=== PATIENT | male | born 1950 | race Caucasian/White ===

== ENCOUNTER 2019-05-27 12:06 | Inpatient (IN) | payer OTHER ==
[~2019-05-27] VITALS: Ht 177.8 cm; Wt 108.1 kg
[~2019-05-27 12:06] MED LIST: CHOL100018 PO; CYAN100099 PO; DULA1.5P SQ; EZET10TA13 PO; FURO80 PO; INSU100I3 SQ; INSU200I4 SQ; KDUR10 PO; LOSA-88 PO; MAGOX PO; SIMV-261 PO; WARF2 PO
[2019-05-27] MEDS ORDERED: INSNOV SQ (12:31)
[2019-05-27] MEDS ORDERED: BUME1TAB34 PO (12:31)
[2019-05-27] MEDS ORDERED: INSU100V37 SQ (12:31)
[2019-05-27] MEDS ORDERED: KDUR10 PO (12:31)
[2019-05-27 12:36] LABS: GLUCOSE,POINT OF CARE 97 MG/DL (70-110)
[2019-05-27] MEDS ORDERED: LIDOCAINE/PF 2% 5 ML VIAL INJ ONE (15:30)
[2019-05-27] MEDS ORDERED: POVIDONE-IODINE 10% 15 ML SOLUTION UD ONE (15:41)
[2019-05-27 15:53] LABS: BASOPHILS % (AUTO) 0.9 % (0.0-2.0); EOSINOPHILS % (AUTO) 0.8 % (1.0-6.0); HEMOGLOBIN 11.5 g/dL (13.5-17.5); LYMPHOCYTES # (AUTO) 1.4 K/uL (1.0-4.8); LYMPHOCYTES % (AUTO) 16.4 % (22.0-44.0); MEAN CORPUSCULAR HEMOGLOBIN 22.6 pg (26.0-34.0); MEAN CORPUSCULAR HGB CONC 30.3 G/dL (31.0-37.0); MEAN CORPUSCULAR VOLUME 74 fL (80-100); MONOCYTES # (AUTO) 1.1 K/uL (0.1-1.0); MONOCYTES % (AUTO) 12.9 % (2.0-9.0); NEUTROPHILS # (AUTO) 5.8 K/uL (1.8-7.7); PLATELET COUNT (AUTO) 112 K/uL (150-450); RED BLOOD CELL COUNT(AUTO) 5.11 MIL/uL (4.50-5.90); RED CELL DISTRIBUTION WIDTH 34.7 % (11.5-14.5)
[2019-05-27 16:10] LABS: CREATININE 1.29 mg/dL (0.60-1.30); INR 1.4 (0.9-1.1); POTASSIUM 3.3 mmol/L (3.5-5.1)
[2019-05-27 16:34] LABS: ALBUMIN 3.5 g/dL (3.4-5.0); TOTAL PROTEIN, SERUM 7.6 g/dL (6.4-8.2)
[2019-05-27] MEDS ORDERED: POTASSIUM CHLORIDE 20 MEQ ER TABLET PO PRN (18:15)
[2019-05-27] MEDS ORDERED: POTASSIUM CHL 10 MEQ/WATER 50 ML IV PRN ×2 (18:15→18:30)
[2019-05-27] MEDS ORDERED: VANCOMYCIN HCL 1 GM/D5% WATER 200 ML IV ONE (19:00)
[2019-05-27] MEDS ORDERED: 0.9% SODIUM CHLORIDE 10 ML SYRINGE IVP PRN (21:15)
[2019-05-27] MEDS ORDERED: ONDANSETRON HCL 4 MG/2 ML VIAL IVP PRN (21:15)
[2019-05-27] MEDS: BUMETANIDE 0.25 MG/ML 4 ML VIAL IVP SCH (21:28)
[2019-05-27] MEDS: ATORVASTATIN CALCIUM 20 MG TABLET PO SCH (21:29)
[2019-05-27] MEDS: DEXTROSE 50%-WATER 25 GM/50 ML SYRINGE IVP PRN (22:40)
[2019-05-27 22:52] VITALS: BP 131/91
[2019-05-27] MEDS: POTASSIUM CHLORIDE 20 MEQ ER TABLET PO PRN (23:28)
[2019-05-28 00:26] VITALS: BP 117/76
[2019-05-28] MEDS: ACETAMINOPHEN 325 MG TABLET PO PRN ×3 (04:11→18:13)
[2019-05-28 04:21] LABS: GLUCOMETER DEV NAME(LOC) 5N.1; GLUCOSE,POINT OF CARE 51 MG/DL (70-110)
[2019-05-28] MEDS: POTASSIUM CHLORIDE 20 MEQ ER TABLET PO PRN (04:25)
[2019-05-28 05:08] VITALS: BP 110/54
[2019-05-28] MEDS: DEXTROSE 50%-WATER 25 GM/50 ML SYRINGE IVP PRN (05:45)
[2019-05-28 05:46] LABS: CALCIUM, TOTAL 8.8 mg/dL (8.8-10.5); CREATININE 1.22 mg/dL (0.60-1.30); POTASSIUM 3.3 mmol/L (3.5-5.1)
[2019-05-28 08:00] VITALS: BP 122/85
[2019-05-28 08:42] LABS: GLUCOMETER DEV NAME(LOC) 5S.1; GLUCOSE,POINT OF CARE 54 MG/DL (70-110)
[2019-05-28] MEDS: ASPIRIN 81 MG CHEWABLE TABLET PO SCH (09:08)
[2019-05-28] MEDS: VANCOMYCIN HCL 1 GM/D5% WATER 200 ML IV SCH ×2 (09:08→20:21)
[2019-05-28] MEDS: BUMETANIDE 0.25 MG/ML 4 ML VIAL IVP SCH ×2 (10:59→20:20)
[2019-05-28 11:16] VITALS: BP 110/85
[2019-05-28 12:00] LABS: BASOPHILS % (AUTO) 1.1 % (0.0-2.0); EOSINOPHILS % (AUTO) 0.9 % (1.0-6.0); HEMATOCRIT 38.8 % (41-53); HEMOGLOBIN 11.6 g/dL (13.5-17.5); LYMPHOCYTES # (AUTO) 1.1 K/uL (1.0-4.8); LYMPHOCYTES % (AUTO) 15.4 % (22.0-44.0); MEAN CORPUSCULAR HEMOGLOBIN 22.5 pg (26.0-34.0); MEAN CORPUSCULAR VOLUME 75 fL (80-100); MONOCYTES # (AUTO) 0.8 K/uL (0.1-1.0); MONOCYTES % (AUTO) 11.4 % (2.0-9.0); NEUTROPHILS # (AUTO) 5.3 K/uL (1.8-7.7); NEUTROPHILS % (AUTO) 71.2 % (40.0-70.0); PLATELET COUNT (AUTO) 135 K/uL (150-450); RED BLOOD CELL COUNT(AUTO) 5.17 MIL/uL (4.50-5.90); RED CELL DISTRIBUTION WIDTH 34.7 % (11.5-14.5)
[2019-05-28] MEDS: PANTOPRAZOLE SODIUM 40 MG DR TABLET PO SCH (12:10)
[2019-05-28] MEDS: INSULIN LISPRO 100 UNITS/ML SQ PRN ×3 (12:12→20:23)
[2019-05-28] MEDS: CefTRIAXone 1 GM/DEXTROSE 50 ML IV SCH (12:26)
[2019-05-28 12:37] LABS: % IRON SATURATION 15.6 % (30-44)
[2019-05-28] MEDS ORDERED: LOPERAMIDE HCL 2 MG CAPSULE PO PRN (14:15)
[2019-05-28] MEDS ORDERED: LOPERAMIDE HCL 2 MG CAPSULE PO ONE (14:15)
[2019-05-28 18:40] LABS: C.DIFF GDH ANTIGEN, Stool Negative (Negative)
[2019-05-28 18:41] LABS: C.DIFF TOXINS A&B, Stool Negative (Negative)
[2019-05-28] MEDS: ATORVASTATIN CALCIUM 20 MG TABLET PO SCH (20:20)
[2019-05-28 20:35] VITALS: BP 106/47
[2019-05-28 23:02] LABS: GLUCOMETER DEV NAME(LOC) 5S.1; GLUCOSE,POINT OF CARE 168 MG/DL (70-110)
[2019-05-28 23:05] LABS: GLUCOMETER DEV NAME(LOC) 5N.2; GLUCOSE,POINT OF CARE 169 MG/DL (70-110)
[2019-05-29] VITALS (7 sets, daily range): BP systolic 20–128; BP diastolic 58–117
[2019-05-29 05:25] LABS: GLUCOMETER DEV NAME(LOC) 5N.1; GLUCOSE,POINT OF CARE 123 MG/DL (70-110)
[2019-05-29 05:26] LABS: GLUCOMETER DEV NAME(LOC) 5N.1; GLUCOSE,POINT OF CARE 215 MG/DL (70-110)
[2019-05-29] MEDS: VANCOMYCIN HCL 1 GM/D5% WATER 200 ML IV SCH ×2 (08:30→20:05)
[2019-05-29] MEDS: BUMETANIDE 0.25 MG/ML 4 ML VIAL IVP SCH (08:30)
[2019-05-29] MEDS: ASPIRIN 81 MG CHEWABLE TABLET PO SCH (08:30)
[2019-05-29] MEDS: PANTOPRAZOLE SODIUM 40 MG DR TABLET PO SCH (08:31)
[2019-05-29 08:53] LABS: EOSINOPHILS % (AUTO) 1.2 % (1.0-6.0); HEMATOCRIT 38.7 % (41-53); HEMOGLOBIN 11.8 g/dL (13.5-17.5); LYMPHOCYTES # (AUTO) 1.4 K/uL (1.0-4.8); LYMPHOCYTES % (AUTO) 22.3 % (22.0-44.0); MEAN CORPUSCULAR HGB CONC 30.4 G/dL (31.0-37.0); MEAN CORPUSCULAR VOLUME 76 fL (80-100); MONOCYTES # (AUTO) 0.8 K/uL (0.1-1.0); MONOCYTES % (AUTO) 13.4 % (2.0-9.0); NEUTROPHILS # (AUTO) 3.8 K/uL (1.8-7.7); NEUTROPHILS % (AUTO) 61.1 % (40.0-70.0); PLATELET COUNT (AUTO) 140 K/uL (150-450); RED BLOOD CELL COUNT(AUTO) 5.11 MIL/uL (4.50-5.90)
[2019-05-29] MEDS ORDERED: METHADONE HCL 10 MG TABLET PO SCH (09:00)
[2019-05-29 09:06] LABS: CALCIUM, TOTAL 9.1 mg/dL (8.8-10.5); CREATININE 1.46 mg/dL (0.60-1.30); POTASSIUM 4.4 mmol/L (3.5-5.1)
[2019-05-29] MEDS: CefTRIAXone 1 GM/DEXTROSE 50 ML IV SCH (11:12)
[2019-05-29] MEDS ORDERED: IPRATROPIUM BROMIDE 0.5 MG/2.5 ML NEB SOLUTION NEB ONE (11:50)
[2019-05-29] MEDS ORDERED: ALBUTEROL SULFATE 2.5 MG/0.5 ML NEB SOLUTION NEB ONE (11:50)
[2019-05-29] MEDS: INSULIN LISPRO 100 UNITS/ML SQ PRN ×2 (12:13→17:08)
[2019-05-29] MEDS ORDERED: ALBUTEROL SULFATE 2.5 MG/0.5 ML NEB SOLUTION NEB SCH (15:00)
[2019-05-29 17:45] LABS: GLUCOMETER DEV NAME(LOC) 5N.1; GLUCOSE,POINT OF CARE 146 MG/DL (70-110)
[2019-05-29 17:46] LABS: GLUCOMETER DEV NAME(LOC) 5N.1; GLUCOSE,POINT OF CARE 169 MG/DL (70-110)
[2019-05-29 18:25] LABS: GLUCOMETER DEV NAME(LOC) 5N.2; GLUCOSE,POINT OF CARE 84 MG/DL (70-110)
[2019-05-29] MEDS ORDERED: IPRATROPIUM BROMIDE 0.5 MG/2.5 ML NEB SOLUTION NEB PRN (20:00)
[2019-05-29] MEDS ORDERED: IPRATROPIUM BROMIDE 0.5 MG/2.5 ML NEB SOLUTION NEB SCH (20:00)
[2019-05-29] MEDS: CARVEDILOL 3.125 MG TABLET PO SCH (20:05)
[2019-05-29] MEDS: ATORVASTATIN CALCIUM 20 MG TABLET PO SCH (20:06)
[2019-05-29] MEDS ORDERED: TraZODone HCL 50 MG TABLET PO PRN (21:00)
[2019-05-29 23:52] LABS: GLUCOMETER DEV NAME(LOC) 5N.1; GLUCOSE,POINT OF CARE 165 MG/DL (70-110)
[2019-05-30 04:55] VITALS: BP 124/60
[2019-05-30 06:57] LABS: BASOPHILS % (AUTO) 1.3 % (0.0-2.0); EOSINOPHILS % (AUTO) 2.6 % (1.0-6.0); HEMATOCRIT 38.2 % (41-53); HEMOGLOBIN 11.5 g/dL (13.5-17.5); LYMPHOCYTES # (AUTO) 1.1 K/uL (1.0-4.8); LYMPHOCYTES % (AUTO) 16.7 % (22.0-44.0); MEAN CORPUSCULAR HGB CONC 30.2 G/dL (31.0-37.0); MEAN CORPUSCULAR VOLUME 76 fL (80-100); MONOCYTES # (AUTO) 0.7 K/uL (0.1-1.0); MONOCYTES % (AUTO) 11.2 % (2.0-9.0); NEUTROPHILS # (AUTO) 4.4 K/uL (1.8-7.7); NEUTROPHILS % (AUTO) 68.2 % (40.0-70.0); PLATELET COUNT (AUTO) 135 K/uL (150-450); RED BLOOD CELL COUNT(AUTO) 5.01 MIL/uL (4.50-5.90); RED CELL DISTRIBUTION WIDTH 35.5 % (11.5-14.5)
[2019-05-30 07:05] LABS: CREATININE 1.27 mg/dL (0.60-1.30); POTASSIUM 4.2 mmol/L (3.5-5.1); VANCOMYCIN,RANDOM 18.1 mcg/mL (25.0-50.0)
[2019-05-30 07:16] VITALS: BP 111/77
[2019-05-30] MEDS ORDERED: VANCOMYCIN HCL 1 GM/D5% WATER 200 ML IV SCH (08:00)
[2019-05-30] MEDS: PANTOPRAZOLE SODIUM 40 MG DR TABLET PO SCH (08:38)
[2019-05-30] MEDS: VANCOMYCIN HCL 1 GM/D5% WATER 200 ML IV SCH ×2 (08:38→21:22)
[2019-05-30] MEDS: LISINOPRIL 5 MG TABLET PO SCH (08:38)
[2019-05-30] MEDS: ASPIRIN 81 MG CHEWABLE TABLET PO SCH (08:39)
[2019-05-30] MEDS ORDERED: BUMETANIDE 1 MG TABLET PO SCH (09:00)
[2019-05-30] MEDS: CARVEDILOL 3.125 MG TABLET PO SCH ×2 (09:00→21:23)
[2019-05-30 09:52] LABS: GLUCOMETER DEV NAME(LOC) 5N.1; GLUCOSE,POINT OF CARE 100 MG/DL (70-110)
[2019-05-30 12:18] VITALS: BP 115/74
[2019-05-30] MEDS: CefTRIAXone 1 GM/DEXTROSE 50 ML IV SCH (14:14)
[2019-05-30 15:28] LABS: GLUCOMETER DEV NAME(LOC) 5N.2; GLUCOSE,POINT OF CARE 96 MG/DL (70-110)
[2019-05-30 16:18] VITALS: BP 102/70
[2019-05-30 20:10] VITALS: BP 119/59
[2019-05-30] MEDS: ATORVASTATIN CALCIUM 20 MG TABLET PO SCH (21:23)
[2019-05-30] MEDS: BUMETANIDE 1 MG TABLET PO SCH (21:23)
[2019-05-31] VITALS (7 sets, daily range): BP systolic 100–139; BP diastolic 61–86
[2019-05-31] MEDS ORDERED: 0.9% SODIUM CHLORIDE 5 ML NEB SOLUTION NEB ONE (05:02)
[2019-05-31] MEDS: IPRATROPIUM BROMIDE 0.5 MG/2.5 ML NEB SOLUTION NEB PRN ×2 (05:09→11:44)
[2019-05-31] MEDS: ALBUTEROL SULFATE 2.5 MG/0.5 ML NEB SOLUTION NEB PRN ×2 (05:09→11:44)
[2019-05-31 07:17] LABS: BASOPHILS % (AUTO) 1.1 % (0.0-2.0); EOSINOPHILS % (AUTO) 2.5 % (1.0-6.0); HEMATOCRIT 35.8 % (41-53); HEMOGLOBIN 10.9 g/dL (13.5-17.5); LYMPHOCYTES # (AUTO) 0.9 K/uL (1.0-4.8); LYMPHOCYTES % (AUTO) 13.7 % (22.0-44.0); MEAN CORPUSCULAR HEMOGLOBIN 23.2 pg (26.0-34.0); MEAN CORPUSCULAR HGB CONC 30.5 G/dL (31.0-37.0); MEAN CORPUSCULAR VOLUME 76 fL (80-100); MONOCYTES # (AUTO) 0.9 K/uL (0.1-1.0); MONOCYTES % (AUTO) 13.5 % (2.0-9.0); NEUTROPHILS # (AUTO) 4.6 K/uL (1.8-7.7); NEUTROPHILS % (AUTO) 69.2 % (40.0-70.0); PLATELET COUNT (AUTO) 162 K/uL (150-450); RED CELL DISTRIBUTION WIDTH 35.6 % (11.5-14.5)
[2019-05-31 07:27] LABS: ALBUMIN 3.2 g/dL (3.4-5.0); BILIRUBIN,TOTAL 1.3 mg/dL (0.1-1.0); CALCIUM, TOTAL 8.6 mg/dL (8.8-10.5); CREATININE 1.29 mg/dL (0.60-1.30); POTASSIUM 4.3 mmol/L (3.5-5.1); TOTAL PROTEIN, SERUM 7.2 g/dL (6.4-8.2)
[2019-05-31] MEDS: PANTOPRAZOLE SODIUM 40 MG DR TABLET PO SCH (09:07)
[2019-05-31] MEDS: BUMETANIDE 1 MG TABLET PO SCH (09:07)
[2019-05-31] MEDS: VANCOMYCIN HCL 1 GM/D5% WATER 200 ML IV SCH ×2 (09:07→20:13)
[2019-05-31] MEDS: LISINOPRIL 5 MG TABLET PO SCH (09:07)
[2019-05-31] MEDS: ASPIRIN 81 MG CHEWABLE TABLET PO SCH (09:07)
[2019-05-31] MEDS: CARVEDILOL 3.125 MG TABLET PO SCH ×2 (09:08→20:23)
[2019-05-31] MEDS: INSULIN LISPRO 100 UNITS/ML SQ PRN ×4 (12:20→21:19)
[2019-05-31] MEDS: CefTRIAXone 1 GM/DEXTROSE 50 ML IV SCH (12:46)
[2019-05-31] MEDS: POTASSIUM CHLORIDE 20 MEQ ER TABLET PO PRN (13:43)
[2019-05-31] MEDS: SPIRONOLACTONE 25 MG TABLET PO SCH (15:15)
[2019-05-31 19:58] LABS: GLUCOMETER DEV NAME(LOC) 5N.2; GLUCOSE,POINT OF CARE 133 MG/DL (70-110)
[2019-05-31 19:58] LABS: GLUCOMETER DEV NAME(LOC) 5N.2; GLUCOSE,POINT OF CARE 128 MG/DL (70-110)
[2019-05-31 19:59] LABS: GLUCOMETER DEV NAME(LOC) 5N.1; GLUCOSE,POINT OF CARE 146 MG/DL (70-110)
[2019-05-31 19:59] LABS: GLUCOMETER DEV NAME(LOC) 5N.1; GLUCOSE,POINT OF CARE 159 MG/DL (70-110)
[2019-05-31 19:59] LABS: GLUCOMETER DEV NAME(LOC) 5N.2; GLUCOSE,POINT OF CARE 148 MG/DL (70-110)
[2019-05-31] MEDS: BUMETANIDE 0.25 MG/ML 4 ML VIAL IVP SCH (20:23)
[2019-05-31] MEDS: ATORVASTATIN CALCIUM 20 MG TABLET PO SCH (20:23)
[2019-05-31 21:25] LABS: GLUCOMETER DEV NAME(LOC) 5N.2; GLUCOSE,POINT OF CARE 191 MG/DL (70-110)
[2019-05-31] MEDS ORDERED: SODIUM CHLORIDE 0.9% 250 ML IV ONE (23:59)
[2019-06-01 03:39] VITALS: BP 132/56
[2019-06-01] MEDS: INSULIN LISPRO 100 UNITS/ML SQ PRN ×5 (05:39→21:20)
[2019-06-01 06:18] LABS: GLUCOMETER DEV NAME(LOC) 5N.2; GLUCOSE,POINT OF CARE 132 MG/DL (70-110)
[2019-06-01 07:11] LABS: CALCIUM, TOTAL 8.7 mg/dL (8.8-10.5); CREATININE 1.37 mg/dL (0.60-1.30); POTASSIUM 4.5 mmol/L (3.5-5.1)
[2019-06-01 07:26] VITALS: BP 123/77
[2019-06-01] MEDS: BUMETANIDE 0.25 MG/ML 4 ML VIAL IVP SCH ×2 (08:47→21:03)
[2019-06-01] MEDS: SPIRONOLACTONE 25 MG TABLET PO SCH (08:47)
[2019-06-01] MEDS: ASPIRIN 81 MG CHEWABLE TABLET PO SCH (08:48)
[2019-06-01] MEDS: LISINOPRIL 5 MG TABLET PO SCH (08:48)
[2019-06-01] MEDS: CARVEDILOL 3.125 MG TABLET PO SCH ×2 (08:48→21:03)
[2019-06-01] MEDS: VANCOMYCIN HCL 1 GM/D5% WATER 200 ML IV SCH ×2 (08:48→21:01)
[2019-06-01] MEDS: PANTOPRAZOLE SODIUM 40 MG DR TABLET PO SCH (08:48)
[2019-06-01 11:36] VITALS: BP 118/69
[2019-06-01] MEDS: CefTRIAXone 1 GM/DEXTROSE 50 ML IV SCH (12:16)
[2019-06-01 14:08] LABS: GLUCOMETER DEV NAME(LOC) 5N.2; GLUCOSE,POINT OF CARE 165 MG/DL (70-110)
[2019-06-01 16:24] VITALS: BP 113/83
[2019-06-01 18:25] LABS: GLUCOMETER DEV NAME(LOC) 5N.1; GLUCOSE,POINT OF CARE 203 MG/DL (70-110)
[2019-06-01 20:13] VITALS: BP 124/81
[2019-06-01] MEDS: ATORVASTATIN CALCIUM 20 MG TABLET PO SCH (21:03)
[2019-06-01 23:57] VITALS: BP 117/65
[2019-06-02] VITALS (7 sets, daily range): BP systolic 100–140; BP diastolic 52–104
[2019-06-02] MEDS: ALBUTEROL SULFATE 2.5 MG/0.5 ML NEB SOLUTION NEB PRN ×4 (00:15→20:17)
[2019-06-02] MEDS: IPRATROPIUM BROMIDE 0.5 MG/2.5 ML NEB SOLUTION NEB PRN ×4 (00:15→20:17)
[2019-06-02 02:27] LABS: GLUCOMETER DEV NAME(LOC) 5N.2; GLUCOSE,POINT OF CARE 147 MG/DL (70-110)
[2019-06-02 06:39] LABS: BASOPHILS % (AUTO) 0.6 % (0.0-2.0); EOSINOPHILS % (AUTO) 0.4 % (1.0-6.0); HEMATOCRIT 36.2 % (41-53); HEMOGLOBIN 11.2 g/dL (13.5-17.5); LYMPHOCYTES # (AUTO) 0.7 K/uL (1.0-4.8); LYMPHOCYTES % (AUTO) 11.9 % (22.0-44.0); MEAN CORPUSCULAR HEMOGLOBIN 23.7 pg (26.0-34.0); MEAN CORPUSCULAR HGB CONC 30.9 G/dL (31.0-37.0); MEAN CORPUSCULAR VOLUME 77 fL (80-100); MONOCYTES # (AUTO) 1.4 K/uL (0.1-1.0); MONOCYTES % (AUTO) 23.1 % (2.0-9.0); NEUTROPHILS # (AUTO) 3.9 K/uL (1.8-7.7); PLATELET COUNT (AUTO) 153 K/uL (150-450); RED BLOOD CELL COUNT(AUTO) 4.72 MIL/uL (4.50-5.90); RED CELL DISTRIBUTION WIDTH 33.9 % (11.5-14.5)
[2019-06-02 07:17] LABS: CALCIUM, TOTAL 8.5 mg/dL (8.8-10.5); CREATININE 1.46 mg/dL (0.60-1.30); MAGNESIUM 2.2 mg/dL (1.80-2.40); POTASSIUM 4.7 mmol/L (3.5-5.1); VANCOMYCIN,RANDOM 22.8 mcg/mL (25.0-50.0)
[2019-06-02] MEDS ORDERED: SODIUM CHLORIDE 0.9% 100 ML ONE ×2 (07:58→10:57)
[2019-06-02 08:04] LABS: GLUCOMETER DEV NAME(LOC) 5N.2; GLUCOSE,POINT OF CARE 99 MG/DL (70-110)
[2019-06-02] MEDS: VANCOMYCIN HCL 1 GM/D5% WATER 200 ML IV SCH ×2 (08:13→20:03)
[2019-06-02] MEDS: SPIRONOLACTONE 25 MG TABLET PO SCH (08:13)
[2019-06-02] MEDS: ASPIRIN 81 MG CHEWABLE TABLET PO SCH (08:13)
[2019-06-02] MEDS: PANTOPRAZOLE SODIUM 40 MG DR TABLET PO SCH (08:13)
[2019-06-02] MEDS: LISINOPRIL 5 MG TABLET PO SCH (08:13)
[2019-06-02] MEDS: BUMETANIDE 0.25 MG/ML 4 ML VIAL IVP SCH ×3 (08:13→21:25)
[2019-06-02] MEDS: CARVEDILOL 3.125 MG TABLET PO SCH ×2 (08:13→21:25)
[2019-06-02] MEDS ORDERED: IOVERSOL 350 MG/ML 100 ML VIAL ONE (10:57)
[2019-06-02 11:30] LABS: BASOPHILS % (AUTO) 1.4 % (0.0-2.0); EOSINOPHILS % (AUTO) 0.3 % (1.0-6.0); HEMATOCRIT 35.7 % (41-53); HEMOGLOBIN 11.1 g/dL (13.5-17.5); LYMPHOCYTES # (AUTO) 0.5 K/uL (1.0-4.8); LYMPHOCYTES % (AUTO) 10.5 % (22.0-44.0); MEAN CORPUSCULAR HEMOGLOBIN 23.6 pg (26.0-34.0); MEAN CORPUSCULAR VOLUME 76 fL (80-100); MONOCYTES % (AUTO) 20.7 % (2.0-9.0); NEUTROPHILS # (AUTO) 3.4 K/uL (1.8-7.7); NEUTROPHILS % (AUTO) 67.1 % (40.0-70.0); PLATELET COUNT (AUTO) 148 K/uL (150-450); RED BLOOD CELL COUNT(AUTO) 4.69 MIL/uL (4.50-5.90); RED CELL DISTRIBUTION WIDTH 34.5 % (11.5-14.5)
[2019-06-02 11:42] LABS: ANION GAP 9 mmol/L (8-16); CALCIUM, TOTAL 8.2 mg/dL (8.8-10.5); CARBON DIOXIDE 21 mmol/L (22-29); CHLORIDE 99 mmol/L (98-107); CREATININE 1.33 mg/dL (0.60-1.30); GLOMERULAR FILTR. RATE CALC 54 mL/min (>60); GLUCOSE,RANDOM 76 mg/dL (70-110); SODIUM SERUM 129 mmol/L (136-145); UREA NITROGEN, BLOOD 44 mg/dL (7-18)
[2019-06-02 11:44] LABS: INR 1.6 (0.9-1.1)
[2019-06-02 11:48] LABS: ALANINE AMINOTRANSFERASE 42 U/L (12-78); ALBUMIN 3.2 g/dL (3.4-5.0); ALKALINE PHOSPHATASE 109 U/L (46-116); ASPARTATE AMINOTRANSFERASE 64 U/L (15-37); BILIRUBIN,TOTAL 1.1 mg/dL (0.1-1.0)
[2019-06-02 12:36] LABS: FREE T4 (FREE THYROXINE) 1.09 ng/dL (0.76-1.46); HCG,QUANTITATIVE < 1 mIU/mL (0-6)
[2019-06-02 12:53] LABS: GLUCOMETER DEV NAME(LOC) 5N.2; GLUCOSE,POINT OF CARE 84 MG/DL (70-110)
[2019-06-02] MEDS: CefTRIAXone 1 GM/DEXTROSE 50 ML IV SCH (13:08)
[2019-06-02] MEDS ORDERED: LEVOTHYROXINE SODIUM 25 MCG TABLET PO ONE (13:15)
[2019-06-02 15:04] LABS: ABG A-A DIFF O2 33.5 mmHg (10-20.0); ABG BASE EXCESS -4.9 mmol/L (-2.0-3.0); ABG CARBOXYHEMOGLOBIN 1.4 % (0.0-1.5); ABG METHEMOGLOBIN 0.3 % (0.0-1.5); ABG OXYGEN CONTENT 15.8 mL/dL (15.0-23.0); ABG OXYGEN SATURATION 94.7 % (95.0-98.0); ABG OXYHEMOGLOBIN 93.1 % (94.0-100.0); ABG PCO2 33 mmHg (35-45); ABG PH 7.396 (7.35-7.450); PO2, ARTERIAL BG 76.5 mmHg (79.0-87.0); SOURCE, BLOOD GAS ARTERIAL; TEMPERATURE, FAHRENHEIT, BG 98.6 FAHREN (96.0-98.6)
[2019-06-02 15:07] LABS: O2 DEVICE,BLOOD GAS ROOM AIR (ROOM AIR); SITE, BLOOD GAS LFT RADIAL
[2019-06-02 18:06] LABS: GLUCOMETER DEV NAME(LOC) 5N.2; GLUCOSE,POINT OF CARE 206 MG/DL (70-110)
[2019-06-02] MEDS: ATORVASTATIN CALCIUM 20 MG TABLET PO SCH (21:25)
[2019-06-02] MEDS: HEPARIN SODIUM,PORCINE 5,000 UNITS/ML VIAL SQ SCH (21:26)
[2019-06-02 22:27] LABS: GLUCOMETER DEV NAME(LOC) 5N.1; GLUCOSE,POINT OF CARE 161 MG/DL (70-110)
[2019-06-03 05:12] VITALS: BP 100/60
[2019-06-03 06:28] LABS: EOSINOPHILS % (AUTO) 1.4 % (1.0-6.0); HEMATOCRIT 34.5 % (41-53); HEMOGLOBIN 10.7 g/dL (13.5-17.5); LYMPHOCYTES # (AUTO) 0.5 K/uL (1.0-4.8); LYMPHOCYTES % (AUTO) 8.5 % (22.0-44.0); MEAN CORPUSCULAR HEMOGLOBIN 23.5 pg (26.0-34.0); MEAN CORPUSCULAR HGB CONC 31.1 G/dL (31.0-37.0); MEAN CORPUSCULAR VOLUME 76 fL (80-100); MONOCYTES # (AUTO) 1.3 K/uL (0.1-1.0); MONOCYTES % (AUTO) 22.2 % (2.0-9.0); NEUTROPHILS # (AUTO) 3.9 K/uL (1.8-7.7); NEUTROPHILS % (AUTO) 66.9 % (40.0-70.0); PLATELET COUNT (AUTO) 137 K/uL (150-450); RED BLOOD CELL COUNT(AUTO) 4.56 MIL/uL (4.50-5.90); RED CELL DISTRIBUTION WIDTH 34.4 % (11.5-14.5)
[2019-06-03] MEDS: ACETAMINOPHEN 325 MG TABLET PO PRN ×2 (06:30→21:20)
[2019-06-03] MEDS: LEVOTHYROXINE SODIUM 25 MCG TABLET PO SCH (06:31)
[2019-06-03 07:17] LABS: CALCIUM, TOTAL 8.1 mg/dL (8.8-10.5); CREATININE 1.55 mg/dL (0.60-1.30); POTASSIUM 3.8 mmol/L (3.5-5.1)
[2019-06-03 07:36] VITALS: BP 115/65
[2019-06-03 07:47] LABS: GLUCOMETER DEV NAME(LOC) 5N.2; GLUCOSE,POINT OF CARE 110 MG/DL (70-110)
[2019-06-03] MEDS: VANCOMYCIN HCL 1 GM/D5% WATER 200 ML IV SCH ×2 (08:28→19:46)
[2019-06-03] MEDS: CARVEDILOL 3.125 MG TABLET PO SCH ×2 (09:00→21:21)
[2019-06-03] MEDS: BUMETANIDE 0.25 MG/ML 4 ML VIAL IVP SCH (09:00)
[2019-06-03] MEDS: PANTOPRAZOLE SODIUM 40 MG DR TABLET PO SCH (09:36)
[2019-06-03] MEDS: SPIRONOLACTONE 25 MG TABLET PO SCH (09:37)
[2019-06-03] MEDS: ASPIRIN 81 MG CHEWABLE TABLET PO SCH (09:37)
[2019-06-03] MEDS: LISINOPRIL 5 MG TABLET PO SCH (09:37)
[2019-06-03] MEDS: HEPARIN SODIUM,PORCINE 5,000 UNITS/ML VIAL SQ SCH ×2 (09:40→21:21)
[2019-06-03] MEDS: ALBUTEROL SULFATE 2.5 MG/0.5 ML NEB SOLUTION NEB PRN (10:25)
[2019-06-03] MEDS: IPRATROPIUM BROMIDE 0.5 MG/2.5 ML NEB SOLUTION NEB PRN (10:25)
[2019-06-03 11:03] VITALS: BP 107/45
[2019-06-03] MEDS: CefTRIAXone 1 GM/DEXTROSE 50 ML IV SCH (12:14)
[2019-06-03 13:32] LABS: GLUCOMETER DEV NAME(LOC) 5N.2; GLUCOSE,POINT OF CARE 135 MG/DL (70-110)
[2019-06-03 15:38] VITALS: BP 91/60
[2019-06-03] MEDS: INSULIN LISPRO 100 UNITS/ML SQ PRN ×2 (17:18→21:31)
[2019-06-03 18:45] LABS: GLUCOMETER DEV NAME(LOC) 5N.1; GLUCOSE,POINT OF CARE 160 MG/DL (70-110)
[2019-06-03 19:51] VITALS: BP 106/71
[2019-06-03] MEDS: GuaiFENesin/D-METHORPHAN/PHENYLEPH 5 ML LIQUID ORAL.SYG PO PRN (21:20)
[2019-06-03] MEDS: ATORVASTATIN CALCIUM 20 MG TABLET PO SCH (21:21)
[2019-06-04 00:02] VITALS: BP 107/53
[2019-06-04 04:38] VITALS: BP 94/58
[2019-06-04] MEDS: LEVOTHYROXINE SODIUM 25 MCG TABLET PO SCH (06:09)
[2019-06-04] MEDS: GuaiFENesin/D-METHORPHAN/PHENYLEPH 5 ML LIQUID ORAL.SYG PO PRN (06:19)
[2019-06-04 07:27] LABS: GLUCOMETER DEV NAME(LOC) 5N.1; GLUCOSE,POINT OF CARE 209 MG/DL (70-110)
[2019-06-04 07:27] LABS: GLUCOMETER DEV NAME(LOC) 5N.1; GLUCOSE,POINT OF CARE 102 MG/DL (70-110)
[2019-06-04 07:39] LABS: CALCIUM, TOTAL 8.3 mg/dL (8.8-10.5); CREATININE 1.53 mg/dL (0.60-1.30); POTASSIUM 4.3 mmol/L (3.5-5.1)
[2019-06-04 07:58] VITALS: BP 97/60
[2019-06-04] MEDS: HEPARIN SODIUM,PORCINE 5,000 UNITS/ML VIAL SQ SCH (08:25)
[2019-06-04] MEDS: PANTOPRAZOLE SODIUM 40 MG DR TABLET PO SCH (08:26)
[2019-06-04] MEDS: SPIRONOLACTONE 25 MG TABLET PO SCH (08:26)
[2019-06-04] MEDS: ASPIRIN 81 MG CHEWABLE TABLET PO SCH (08:26)
[2019-06-04] MEDS: CARVEDILOL 3.125 MG TABLET PO SCH (08:27)
[2019-06-04] MEDS: VANCOMYCIN HCL 1 GM/D5% WATER 200 ML IV SCH (08:58)
[2019-06-04] MEDS ORDERED: FUROSEMIDE 80 MG TABLET PO SCH (09:00)
[2019-06-04] MEDS ORDERED: ASPI-728 PO (11:13)
[2019-06-04] MEDS ORDERED: SPIR25 PO (11:16)
[2019-06-04] MEDS ORDERED: INSU100V SQ (11:19)
[2019-06-04] MEDS ORDERED: CARV3 PO (11:20)
[2019-06-04] MEDS ORDERED: ATOR20TA86 PO (11:20)
[2019-06-04] MEDS ORDERED: LEVO125T95 PO (11:22)
[2019-06-04] MEDS: ACETAMINOPHEN 325 MG TABLET PO PRN (11:37)
[2019-06-04] MEDS: CefTRIAXone 1 GM/DEXTROSE 50 ML IV SCH (11:38)
[2019-06-04 11:57] VITALS: BP 113/73
[2019-06-04 12:06] LABS: GLUCOMETER DEV NAME(LOC) 5N.1; GLUCOSE,POINT OF CARE 150 MG/DL (70-110)
[2019-06-04] MEDS: INSULIN LISPRO 100 UNITS/ML SQ PRN (12:20)
[2019-06-05] MEDS ORDERED: VANCOMYCIN HCL 1 GM/D5% WATER 200 ML IV SCH (08:00)
== END 2019-06-04 13:40 | DRG 291 ==
LOC: EMS 12:15 → 5N 21:00
PROVIDERS: ADMIT Internal Medicine; ATTEND Internal Medicine
PROC: 0Y9H0ZZ Drainage of Right Lower Leg, Open Approach (ICD-10-PCS; principal; 2019-05-27)
DX: I11.0 Hypertensive heart disease with heart failure (principal); G92 Toxic encephalopathy; N17.9 Acute kidney failure, unspecified; L02.415 Cutaneous abscess of right lower limb; I50.23 Acute on chronic systolic (congestive) heart failure; E11.9 Type 2 diabetes mellitus without complications; I25.5 Ischemic cardiomyopathy; I25.10 Atherosclerotic heart disease of native coronary artery without angina pectoris; E78.5 Hyperlipidemia, unspecified; R47.1 Dysarthria and anarthria; E78.00 Pure hypercholesterolemia, unspecified; Z83.3 Family history of diabetes mellitus; Z82.49 Family history of ischemic heart disease and other diseases of the circulatory system; Z95.810 Presence of automatic (implantable) cardiac defibrillator; Z79.4 Long term (current) use of insulin; Z95.1 Presence of aortocoronary bypass graft; Z86.73 Personal history of transient ischemic attack (TIA), and cerebral infarction without residual deficits
CPT/HCPCS: 82270; 82728; 82805; 83540; 83550; 83735; 84132; 84145; 84439; 84443; 86850; 86900; 86901; 87070; 87205; 87324; 87449; 93005; 93306; 93925; 94640; 97116; 97163; 97166; 97530; 97535; J0696; J1644; J3370; J3490; J7050